=== PATIENT | male | born 1980 | race Two or more races ===

== ENCOUNTER 2020-05-25 06:31 | Inpatient (IN) | payer MEDICAID, OTHER ==
[2020-05-25] VITALS (8 sets, daily range): BP systolic 105–139; BP diastolic 56–87
[~2020-05-25] VITALS: Ht 167.6 cm; Wt 90.5 kg
[2020-05-25] MEDS ORDERED: DexAMETHasone SOD PHOS 10MG/1ML VIAL INJ IV ONE (07:15)
[2020-05-25 08:18] LABS: Basophils # (auto) 0 10 ^3/uL (0-0.2); Eosinophils # (auto) 0 10 ^3/uL (0-0.8); Eosinophils % (auto) 0.1 % (0.0-7.0); Hematocrit 42.5 % (41.0-53.0); Hemoglobin 14.4 g/dL (13.5-17.5); Lymphocytes # (auto) 0.6 10 ^3/uL (0.4-5.4); Mean Corpuscular Hemoglobin 31.6 pg (28.0-32.0); Mean Corpuscular Hgb Conc. 33.8 g/dL (32.0-36.0); Mean Corpuscular Volume 93.4 fL (80.0-100.0); Monocytes # (auto) 0.4 10 ^3/uL (0-1.3); Monocytes % (auto) 2.9 % (0.0-12.0); Neutrophils # (auto) 13.3 10 ^3/uL (1.6-8.6); Platelet Count (auto) 199 10^3/uL (140-450); Red Blood Cells 4.55 10^6/uL (4.5-5.90); Red Cell Distribution Width 13.1 % (11.8-14.3); White Blood Cell 14.3 10^3/uL (4.4-10.8)
[2020-05-25 08:20] LABS: Chloride 99 mmol/L (98-107); Potassium 4.2 mmol/L (3.5-5.1); Sodium 134 mmol/L (136-145)
[2020-05-25 08:28] LABS: INR 0.95 (0.9-1.15); Partial Thromboplastin Time 26.5 sec (23.0-31.2)
[2020-05-25 08:32] LABS: Alanine Aminotransferase 40 U/L (16-61); Albumin 2.9 g/dL (3.4-5.0); Alkaline Phosphatase 60 U/L (45-117); Anion Gap 7 (5-15); Aspartate Aminotransferase 52 U/L (15-37); BUN/Creatinine Ratio 8.1; Bilirubin, Total 0.4 mg/dL (0.2-1.0); Blood Urea Nitrogen 8 mg/dL (7-18); Calcium 8.6 mg/dL (8.5-10.1); Carbon Dioxide 28 mmol/L (21-32); GFR African American 108 mL/min; GFR Non-African American 89 mL/min; Glucose 104 mg/dL (74-106); Lactate Dehydrogenase 603 U/L (87-241); Magnesium 2.3 mg/dL (1.6-2.6); Total Protein 7.8 g/dL (6.4-8.2)
[2020-05-25 08:37] LABS: CRP High Sensitivity > 19 mg/dL (< 0.3)
[2020-05-25] MEDS ORDERED: DOXYCYCLINE 100MG/250ML 250 ML IV ONE (08:45)
[2020-05-25 09:10] LABS: Urine WBC None Seen /hpf (0 - 3)
[2020-05-25 09:35] LABS: Urine Bacteria NONE SEEN /hpf (None Seen); Urine Blood Negative /uL (Negative); Urine Specific Gravity 1.009 (1.001-1.035)
[2020-05-25] MEDS ORDERED: KETOROLAC TROMETH 30 MG/ML 1ML VIAL IV ONE (10:00)
[2020-05-25] MEDS ORDERED: MIDAZOLAM DRIP 50 mg/50mL 50 ML IV ONE (11:06)
[2020-05-25] MEDS ORDERED: MORPHINE SULF INJ 2 MG/ML SYRINGE 1ML IV PRN (11:30)
[2020-05-25] MEDS ORDERED: NITROGLYCERIN 0.4 MG SL TAB SL PRN (11:30)
[2020-05-25] MEDS ORDERED: ALLO300T2 PO (13:30)
[2020-05-25] MEDS ORDERED: BICT1TAB PO (13:30)
[2020-05-25] MEDS ORDERED: LEV100T PO (13:30)
[2020-05-25] MEDS: ALBUTEROL SULF HFA 90MCG INH 200DOSE IN SCH ×2 (14:42→21:12)
[2020-05-25] MEDS ORDERED: LEVO137T3 PO (15:40)
[2020-05-25] MEDS ORDERED: MULT1CHW PO (15:43)
[2020-05-25] MEDS ORDERED: B-COTAB59 PO (15:43)
[2020-05-25] MEDS ORDERED: ZINC50TA7 PO (15:43)
[2020-05-25] MEDS ORDERED: CHOL100079 PO (15:43)
[2020-05-25] MEDS ORDERED: REMDESIVIR 200 MG in NS 210ml LOADING DOSE ADULT IV ONE (17:00)
[2020-05-25] MEDS: traMADol HCL 50 MG TAB PO PRN (18:47)
[2020-05-25] MEDS: guaiFENesin-DM 100/10mg/5ml SYR PO PRN (19:19)
--- NOTE | 2020-05-25 19:45 | NUR ---
Opening Shift Note Assumed care of patient, awake and alert. Patient has no S/S of distress/SOB or pain. Patient's vitals after Remdesivir (Temp 99.5 F, BP 117/61, HR 104, RR 20, and SPO2 92% on 3L. Patient denies having any symptoms/reactions related to Remdesivir infusion. Bed is locked in lowest position with call light within reach. Instructed on POC and to call for assist PRN, will continue to monitor for changes Q1hr and PRN.
--- NOTE | 2020-05-25 19:55 | NUR ---
Patient's temperature is elevated at 100.0 F. Patient c/o feeling hot and sweaty. Cooling measures have been initiated. Patient also requesting Tylenol. Will continue to monitor the patient's temperature. Addendum: 05/26/20 at 0236 by Collin Medel RN *Wrong time* @3131
[2020-05-25] MEDS: BUDESONIDE (INHALATION) 180 MCG IH IN SCH (21:12)
[2020-05-25] MEDS: ACETAMINOPHEN 500 MG TAB PO PRN (22:00)
[2020-05-25] MEDS: DOXYCYCLINE 100MG/250ML 250 ML IV SCH (22:00)
--- NOTE | 2020-05-25 22:15 | NUR ---
IV insertion IV access obtained, via clean sterile technique by inserting 22 gauge catheter at right AC after 1 attempt(s). IV secured properly. No trauma to site. Patient tolerated well.
--- NOTE | 2020-05-25 23:05 | NUR ---
Patient's temperature has improved to 98.4 F. Patient is resting comfortably in bed. Will continue to monitor the patient's status.
[2020-05-26 05:08] VITALS: BP 127/85
[2020-05-26] MEDS: BUDESONIDE (INHALATION) 180 MCG IH IN SCH ×2 (06:04→20:38)
[2020-05-26] MEDS: ALBUTEROL SULF HFA 90MCG INH 200DOSE IN SCH ×3 (06:04→20:38)
[2020-05-26] MEDS: traMADol HCL 50 MG TAB PO PRN (06:14)
[2020-05-26] MEDS: ALLOPURINOL 300 MG TAB PO SCH (06:15)
[2020-05-26] MEDS: LEVOTHYROXINE SODIUM 50 MCG TAB PO SCH (06:15)
[2020-05-26 07:18] LABS: Basophils # (auto) 0 10 ^3/uL (0-0.2); Basophils % (auto) 0.1 % (0.0-2.0); Eosinophils # (auto) 0 10 ^3/uL (0-0.8); Hematocrit 41.4 % (41.0-53.0); Hemoglobin 14.6 g/dL (13.5-17.5); Lymphocytes # (auto) 0.8 10 ^3/uL (0.4-5.4); Lymphocytes % (auto) 5.6 % (10.0-50.0); Mean Corpuscular Hemoglobin 33.2 pg (28.0-32.0); Mean Corpuscular Hgb Conc. 35.1 g/dL (32.0-36.0); Mean Corpuscular Volume 94.5 fL (80.0-100.0); Monocytes # (auto) 0.7 10 ^3/uL (0-1.3); Monocytes % (auto) 4.7 % (0.0-12.0); Neutrophils # (auto) 12.7 10 ^3/uL (1.6-8.6); Neutrophils % (auto) 89.6 % (37.0-80.0); Nucleated Red Blood Cells % 0.1 %; Platelet Count (auto) 256 10^3/uL (140-450); Red Blood Cells 4.39 10^6/uL (4.5-5.90); Red Cell Distribution Width 13.4 % (11.8-14.3); White Blood Cell 14.2 10^3/uL (4.4-10.8)
[2020-05-26 07:52] LABS: Albumin 2.8 g/dL (3.4-5.0); Calcium 8.8 mg/dL (8.5-10.1); Potassium 4.7 mmol/L (3.5-5.1)
[2020-05-26 07:57] LABS: BUN/Creatinine Ratio 13.7; Bilirubin, Total 0.5 mg/dL (0.2-1.0); Total Protein 7.8 g/dL (6.4-8.2)
[2020-05-26 08:00] VITALS: BP 110/62
--- NOTE | 2020-05-26 08:00 | NUR ---
Opening Shift Note Assumed care of patient, awake, alert and oriented X4. No S/S of distress/SOB or pain. Tele# 18, sinus rhythm @ 72 bpm. IV X2, left antecubital, 18 gauge and right antecubital, 22 gauge, both patent and saline locked. Instructed on POC and to call for assist PRN, verbalized understanding. Bed locked, in lowest position, call light within reach, will continue to monitor for changes Q1hr and PRN.
[2020-05-26] MEDS: DexAMETHasone SOD PHOS 10MG/1ML VIAL INJ IV SCH (09:54)
[2020-05-26] MEDS: ZINC SULFATE 220mg CAP or TAB PO SCH (09:54)
[2020-05-26] MEDS: ASCORBIC ACID 1,000 MG TAB PO SCH (09:54)
[2020-05-26] MEDS: Bictegravir-Emtricitabine-Teno (Biktarvy 50-200-25 mg) 1 TAB PO SCH (09:54)
[2020-05-26] MEDS: DOXYCYCLINE 100MG/250ML 250 ML IV SCH ×2 (09:54→21:51)
[2020-05-26] MEDS: ENOXAPARIN SOD 40 MG/0.4 ML SYRINGE SC SCH (09:55)
[2020-05-26] MEDS: CHOLECALCIFEROL (VITD3) 2,000 UNIT CAP PO SCH (09:55)
[2020-05-26] MEDS ORDERED: TENOFOVIR ALAFENAMIDE PO SCH (10:00)
[2020-05-26] MEDS ORDERED: BICTEGRAVIR PO SCH (10:00)
[2020-05-26] MEDS ORDERED: EMTRICITABINE PO SCH (10:00)
[2020-05-26 12:00] VITALS: BP 133/85
[2020-05-26] MEDS ORDERED: IOHEXOL 350 MG/ML 100ML IJ ONE (14:31)
--- NOTE | 2020-05-26 14:51 | NUR ---
CT Patient taken to radiology via wheelchair on 3 LPM O2 via nasal cannula with N95 mask for CT of chest, no distress noted on departure.
[2020-05-26 16:57] VITALS: BP 136/88
--- NOTE | 2020-05-26 17:10 | NUR ---
REMDESIVIR Pre V/S 98.6 F orally 130/83 86 bpm 20 bpm O2 95% on 3 LPM via nasal cannula
--- NOTE | 2020-05-26 17:25 | NUR ---
REMDESIVIR 15 min V/S 98.6 F orally 122/77 83 bpm 20 bpm O2 93% on 3 LPM via nasal cannula
[2020-05-26] MEDS: REMDESIVIR 100mg in NS 230ml DAILYx4DAYS (NO VENT) IV SCH (17:35)
--- NOTE | 2020-05-26 18:15 | NUR ---
REMDESIVIR Post V/S 98.3 F orally 133/91 83 bpm 20 bpm O2 91% on 3 LPM via nasal cannula
--- NOTE | 2020-05-26 19:13 | NUR ---
Care endorsed to NEFTALI Delcid, night nurse.
--- NOTE | 2020-05-26 19:30 | NUR ---
Opening Shift Note Assumed care of patient, patient asleep. No S/S of distress/SOB or pain. Will continue to monitor for changes Q1hr and PRN.
--- NOTE | 2020-05-26 19:35 | NUR ---
RECEIVED CALL FROM [facility] FOR AN UPDATE AND CLARIFICATION . POSSIBLE TRANSFER FOR TOMORROW.
[2020-05-26 22:08] VITALS: BP 130/81
[2020-05-27] MEDS: guaiFENesin-DM 100/10mg/5ml SYR PO PRN (03:21)
[2020-05-27 04:44] VITALS: BP 105/60
[2020-05-27] MEDS: LEVOTHYROXINE SODIUM 50 MCG TAB PO SCH (06:04)
[2020-05-27] MEDS: ALLOPURINOL 300 MG TAB PO SCH (06:05)
[2020-05-27] MEDS: BUDESONIDE (INHALATION) 180 MCG IH IN SCH ×2 (06:27→21:22)
[2020-05-27] MEDS: ALBUTEROL SULF HFA 90MCG INH 200DOSE IN SCH ×3 (06:27→21:22)
[2020-05-27 07:00] LABS: Basophils # (auto) 0 10 ^3/uL (0-0.2); Eosinophils # (auto) 0 10 ^3/uL (0-0.8); Lymphocytes # (auto) 1.1 10 ^3/uL (0.4-5.4); Lymphocytes % (auto) 8.5 % (10.0-50.0); Mean Corpuscular Hemoglobin 31.9 pg (28.0-32.0); Neutrophils # (auto) 10.9 10 ^3/uL (1.6-8.6); Neutrophils % (auto) 83.5 % (37.0-80.0); Nucleated Red Blood Cells % 0.1 %; Platelet Count (auto) 334 10^3/uL (140-450); Red Blood Cells 4.69 10^6/uL (4.5-5.90); Red Cell Distribution Width 13.1 % (11.8-14.3)
[2020-05-27 07:09] LABS: Albumin 2.8 g/dL (3.4-5.0); Potassium 4.2 mmol/L (3.5-5.1)
[2020-05-27 07:11] LABS: BUN/Creatinine Ratio 17.4
[2020-05-27 07:14] LABS: Bilirubin, Total 0.5 mg/dL (0.2-1.0); Total Protein 7.6 g/dL (6.4-8.2)
--- NOTE | 2020-05-27 08:00 | NUR ---
Opening Shift Note Assumed care of patient, awake, alert and oriented X4. O2 @ 6 LPM via nasal cannula with sats @ 92%. No S/S of distress/SOB or pain. Tele# 18, sinus rhythm @ 86 bpm. IV X2, left antecubital, 18 gauge and right antecubital, 22 gauge, both patent and saline locked. Instructed on POC and to call for assist PRN, verbalized understanding. Bed locked, in lowest position, call light within reach, will continue to monitor for changes Q1hr and PRN
[2020-05-27 08:51] VITALS: BP 104/57
[2020-05-27] MEDS: DexAMETHasone SOD PHOS 10MG/1ML VIAL INJ IV SCH (09:31)
[2020-05-27] MEDS: Bictegravir-Emtricitabine-Teno (Biktarvy 50-200-25 mg) 1 TAB PO SCH (09:31)
[2020-05-27] MEDS: DOXYCYCLINE 100MG/250ML 250 ML IV SCH (09:31)
[2020-05-27] MEDS: PANTOPRAZOLE 40 MG TAB PO SCH (09:32)
[2020-05-27] MEDS: CHOLECALCIFEROL (VITD3) 2,000 UNIT CAP PO SCH ×2 (09:32→11:49)
[2020-05-27] MEDS: ZINC SULFATE 220mg CAP or TAB PO SCH (09:32)
[2020-05-27] MEDS: ENOXAPARIN SOD 40 MG/0.4 ML SYRINGE SC SCH (09:32)
[2020-05-27] MEDS: ASCORBIC ACID 1,000 MG TAB PO SCH (09:32)
[2020-05-27] MEDS ORDERED: FUROSEMIDE 20 MG/2 ML VIAL IV ONE (11:00)
[2020-05-27] MEDS ORDERED: ENOXAPARIN SOD 60 MG/0.6 ML SYRINGE SC ONE (11:00)
[2020-05-27] MEDS ORDERED: POTASSIUM CHL 10 Meq TABLET PO ONE (11:00)
[2020-05-27] MEDS: PIPERACILLIN-TAZOB 3.375GM 100 ML IV SCH ×2 (11:51→18:19)
--- NOTE | 2020-05-27 12:12 | NUR ---
1205 05/27/20 - Faxed to [facility] AT [phone] face sheet, order to transfer to [facility] facility via ACLS protocol to a tele bed, H/P, labs, meds, progress notes. Pending review and bed availability.
[2020-05-27 13:00] VITALS: BP 130/85
--- NOTE | 2020-05-27 13:21 | NUR ---
ROUNDS Dr Alvarez at bedside for rounds, new orders received and followed through. Patient updated on plan of care, verbalized understanding.
--- NOTE | 2020-05-27 15:04 | NUR ---
1450 05/27/20 - Contacted [facility] at [phone], requesting update on transfer to [facility]. Spoke with case work aide Desire, who stated she was processing request. Provided Desire with a verbal report on patient's current status. Transfer pending review and bed availability.
[2020-05-27 17:00] VITALS: BP 130/74
--- NOTE | 2020-05-27 17:00 | NUR ---
REMDESIVIR Pre V/S 97.7 F orally 130/74 86 bpm 24 bpm O2 93% on 7 LPM via Oxymizer
--- NOTE | 2020-05-27 17:15 | NUR ---
REMDESIVIR 15 min V/S 98.0 F orally 132/83 87 bpm 22 bpm O2 92% on 7 LPM via Oxymizer
[2020-05-27] MEDS: REMDESIVIR 100mg in NS 230ml DAILYx4DAYS (NO VENT) IV SCH (17:17)
--- NOTE | 2020-05-27 18:15 | NUR ---
REMDESIVIR Post V/S 98.2 F orally 131/86 84 bpm 22 bpm O2 91% on 7 LPM via Oxymizer
--- NOTE | 2020-05-27 19:11 | NUR ---
Care endorsed to NEFTALI Delcid, night nurse.
--- NOTE | 2020-05-27 19:30 | NUR ---
Opening Shift Note Assumed care of patient, awake and alert. No S/S of distress/SOB or pain. Instructed on POC and to call for assist PRN, will continue to monitor for changes Q1hr and PRN.
--- NOTE | 2020-05-27 21:22 | NUR ---
PT RINSED OUT HIS MOUTH POST PULMICORT TX Addendum: 05/27/20 at 2303 by EZ LARSEN RT Amended: Links added.
[2020-05-27] MEDS: ENOXAPARIN SOD 100 MG/1 ML SYRINGE SC SCH (21:26)
[2020-05-27 22:00] VITALS: BP 129/86
[2020-05-28] VITALS (9 sets, daily range): BP systolic 102–129; BP diastolic 65–83
[2020-05-28] MEDS: ACETAMINOPHEN 500 MG TAB PO PRN (00:48)
[2020-05-28] MEDS: PIPERACILLIN-TAZOB 3.375GM 100 ML IV SCH ×3 (02:47→15:00)
[2020-05-28 06:24] LABS: Albumin 2.8 g/dL (3.4-5.0); BUN/Creatinine Ratio 16.2; Calcium 8.7 mg/dL (8.5-10.1); Potassium 3.7 mmol/L (3.5-5.1)
[2020-05-28 06:27] LABS: Bilirubin, Total 0.6 mg/dL (0.2-1.0); Total Protein 7.2 g/dL (6.4-8.2)
[2020-05-28] MEDS: LEVOTHYROXINE SODIUM 50 MCG TAB PO SCH (06:29)
[2020-05-28] MEDS: ALLOPURINOL 300 MG TAB PO SCH (06:30)
--- NOTE | 2020-05-28 07:25 | NUR ---
Opening Shift Note Assumed care of patient, awake and alert. No S/S of pain. Patient currently sustaining SP02 at 81%. patient titrated to 8l oxymizer. Instructed on POC and to call for assist PRN, will continue to monitor for changes Q1hr and PRN.
[2020-05-28] MEDS: ALBUTEROL SULF HFA 90MCG INH 200DOSE IN SCH ×3 (07:44→21:27)
[2020-05-28] MEDS: BUDESONIDE (INHALATION) 180 MCG IH IN SCH ×2 (07:44→21:27)
[2020-05-28] MEDS: DexAMETHasone SOD PHOS 10MG/1ML VIAL INJ IV SCH (09:36)
[2020-05-28] MEDS: ZINC SULFATE 220mg CAP or TAB PO SCH (09:38)
[2020-05-28] MEDS: ASCORBIC ACID 1,000 MG TAB PO SCH (09:39)
[2020-05-28] MEDS: PANTOPRAZOLE 40 MG TAB PO SCH (09:39)
[2020-05-28] MEDS: CHOLECALCIFEROL (VITD3) 2,000 UNIT CAP PO SCH (09:39)
[2020-05-28] MEDS: ENOXAPARIN SOD 100 MG/1 ML SYRINGE SC SCH (09:39)
[2020-05-28] MEDS ORDERED: POTASSIUM CHL 10 Meq TABLET PO SCH (10:00)
[2020-05-28] MEDS ORDERED: FUROSEMIDE 20 MG/2 ML VIAL IV SCH (10:00)
[2020-05-28] MEDS: Bictegravir-Emtricitabine-Teno (Biktarvy 50-200-25 mg) 1 TAB PO SCH (10:00)
--- NOTE | 2020-05-28 13:43 | NUR ---
1340 05/28/20 - Faxed to [facility] at [phone] face sheet, order to transfer to [facility] facility via critical care protocol to a tele bed, transfer summary, current progress notes. Pending review and bed availability'
--- NOTE | 2020-05-28 14:21 | NUR ---
1400 05/28/20 - Contacted [facility] at [phone], spoke with patient case coordinator Key who stated she is working on the transfer however [facility] facilities at [place] and [place] both have no beds available. Patient may have to be transferred to contracted facility.
--- NOTE | 2020-05-28 16:22 | NUR ---
[facility] [facility] CALLED REGARDING TRANSPORT. PATIENT WILL BE PICKED UP AT 2100. NEW ROOM WILL BE 542. DISTRIBUTION AGENT RN TO CALL REPORT TO [phone] AFTER 1999.
--- NOTE | 2020-05-28 16:32 | NUR ---
REMDESIVIR Pre V/S 98.3 F orally 129/78 68 bpm 21 bpm O2 94% on 10 LPM via Oxymizer
[2020-05-28] MEDS: REMDESIVIR 100mg in NS 230ml DAILYx4DAYS (NO VENT) IV SCH (16:50)
--- NOTE | 2020-05-28 16:58 | NUR ---
REMDESIVIR 15 min V/S 127/88 75 bpm
--- NOTE | 2020-05-28 17:26 | NUR ---
[facility] FROM [facility] PER [facility] PATIENT HAS BEEN ACCEPTED AND WILL BE GOING TO [facility] [phone] TO ROOM 538 WITH NEFTALI FITZPATRICK. ACCEPTING MD [facility].
--- NOTE | 2020-05-28 17:27 | NUR ---
PER [facility] TRANSPORT WILL PICK PATIENT UP AT 193
--- NOTE | 2020-05-28 17:43 | NUR ---
REMDESIVIR post-infusion 135/76 82 bpm
--- NOTE | 2020-05-28 19:30 | NUR ---
Opening Shift Note Assumed care of patient, awake and alert. No S/S of distress/SOB or pain. Instructed on POC and to call for assist PRN, will continue to monitor for changes Q1hr and PRN. Patient aware of transfer.
--- NOTE | 2020-05-28 20:38 | NUR ---
SPOKE TO [facility]NAD[facility] AT [facility] FOR CONFIRMATION OF TRANSFER [phone]. REPORT GIVEN TO SOFIA LINDSAY AT [facility]. PT GOING TO ROOM 542. [facility] TO ARRIVE AT 2100.
--- NOTE | 2020-05-28 21:31 | NUR ---
Pt being trans to another hosp Order obtained for transfer of [facility]ABS AMEZQUITA to [facility]. Report called/given to Sobia LINDSAY. Report given to EMS transport team. Medication reconciliation form completed and copy given to patient. Transported via [facility] - gurney along with copied chart and imaging films/disk and all personal belongings. No distress noted on time of departure. Family notified of destination and room number, verbalized understanding.
== END 2020-05-28 20:20 | disposition short-term general hospital (02) | DRG 720 ==
LOC: EDBD 06:31 → ER 06:31 → TELE 06:32 → EAST 12:28 → TELE-EAST 12:29
PROVIDERS: ADMIT Nurse Practitioner Acute Care; ATTEND Internal Medicine
PROC: XW033E5 Introduction of Remdesivir Anti-infective into Peripheral Vein, Percutaneous Approach, New Technology Group 5 (ICD-10-PCS; 2020-05-25)
PROC: XW13325 Transfusion of Convalescent Plasma (Nonautologous) into Peripheral Vein, Percutaneous Approach, New Technology Group 5 (ICD-10-PCS; principal; 2020-05-28)
PROC: XW033E5 Introduction of Remdesivir Anti-infective into Peripheral Vein, Percutaneous Approach, New Technology Group 5 (ICD-10-PCS; 2020-05-28)
DX: A41.89 Other specified sepsis (principal); U07.1 COVID-19; J96.01 Acute respiratory failure with hypoxia; J12.89 Other viral pneumonia; E88.09 Other disorders of plasma-protein metabolism, not elsewhere classified; E66.9 Obesity, unspecified; M10.9 Gout, unspecified; Z21 Asymptomatic human immunodeficiency virus [HIV] infection status; Z68.32 Body mass index [BMI] 32.0-32.9, adult; Z79.899 Other long term (current) drug therapy; E03.9 Hypothyroidism, unspecified
CPT/HCPCS: 36415; 71045; 71275; 80053; 81001; 82728; 83605; 83615; 83735; 84443; 84484; 85025; 85379; 85610; 85730; 86141; 86850; 86900; 86901; 87040; 87426; 93005; 94640; 96365; 96375; 99291; G0378; J1100; J1885; J2250; J2543; J3490